=== PATIENT | male | born 1945 | race African-American/Black ===

== ENCOUNTER 2018-06-25 17:27 | Emergency (ER) | payer SELFPAY ==
[~2018-06-25] VITALS: Ht 172.7 cm; Wt 59.0 kg
--- NOTE | 2018-06-25 17:35 | NUR ---
ED Nurse Note: Patient walked into Triage room ambulating with no complaints other than to "inquire about a convalescent home". Patient denies any pain. Patient refused for vitals to be taken. Patient walked out of the Triage room ambulating.
--- NOTE | 2018-06-26 02:30 | Emergency Room Report ---
History of Present Illness General Chief Complaint: To Be Triaged Source: Medical Record Present Illness HPI Apparently patient cc Stomach pain. In triage, refused to be examined. Stated he wanted to find a half-way. Medical Decision Making Diagnostic Impression: Primary Impression: LWBSMD ER Course Patient left prior to triage. Disposition: LEFT W/OUT BEING SEEN Condition: Unknown Referrals: NOT CHOSEN IPA/,REFERRING (PCP) Cristhian Zuniga MD Jun 26, 2018 02:30
== END 2018-06-25 17:45 | disposition left against medical advice (07) ==
LOC: EMR 17:41
DX: Z53.21 Procedure and treatment not carried out due to patient leaving prior to being seen by health care provider (principal)